=== PATIENT | male | born 1985 | race Caucasian/White ===

== ENCOUNTER 2019-08-21 09:12 | Outpatient (CLI) | payer BC ==
[2019-08-21] MEDS ORDERED: morphine 4 MG/ML inj SYRINge IV ONE (10:55)
== END 2019-08-21 23:59 | disposition home or self-care (01) ==
LOC: RAD 09:12
PROVIDERS: ATTEND Nurse Practitioner Family
DX: K81.1 Chronic cholecystitis (principal)
CPT/HCPCS: 78227; A9537; J2270